=== PATIENT | male | born 1990 | race Caucasian/White ===

== ENCOUNTER 2019-11-26 21:52 | Emergency (ER) | payer OTHER, SELFPAY ==
[2019-11-26 21:54] VITALS: BP 167/86; PULSE 111; RESP 16; TEMP 38.5; O2SAT 100
--- NOTE | 2019-11-26 23:29 | ED_ITS ---
I attest that this documentation has been prepared under the direction and in the presence of Curt Fournier MD. Shaina Mathews Scribe 11/26/19;23:29 HPI - URI/Sore Throat General Chief Complaint: Upper Respiratory Infection Stated Complaint: flu symptoms Time Seen by Provider: 11/26/19 23:20 Source: patient and RN notes reviewed Mode of arrival: other Limitations: no limitations History of Present Illness HPI Narrative: Pt is a 29 y/o male who presents to the ED with c/o nasal congestion that began this morning. He states that he has been drinking water and Pedialyte. Pt also reports fever, chills, and a cough, but denies CP and SOB. MD elicited complaint: nasal congestion Onset (ago): hour(s) Consistency: constant Able to tolerate fluids by mouth: Yes Associated symptoms: fever, chills and cough Related Data Allergies Allergy/AdvReac Type Severity Reaction Status Date / Time amoxicillin Allergy Intermediate Other Verified 11/26/19 23:32 ibuprofen Allergy Intermediate TURNS FACE Verified 11/26/19 23:32 PURPLE Penicillins Allergy Unknown Swelling Verified 11/26/19 23:32 Review of Systems Constitutional: Constitutional: Reports chills and Reports fever(s) ENT: Reports nasal congestion Cardiovascular: Cardiovascular: Denies chest pain Respiratory: Respiratory: Reports cough and Denies dyspnea PMFSH Past Medical History Medical History (Updated 11/26/19 @ 23:34 by Shaina Mathews) Biliary colic RBBB (right bundle branch block with left anterior fascicular block) Surgical History Surgical History (Updated 11/26/19 @ 23:34 by Shaina Mathews) No history of previous surgery Social History Social History (Updated 11/26/19 @ 23:34 by Shaina Mathews) Smoking packs per day: 1 Smoking cigarettes per day: 20.0 Smoking status: Current every day smoker Tobacco type: cigarettes Alcohol intake: current Exam Narrative: Exam Narrative: GENERAL: Well-appearing, well-nourished, and in no acute distress. HEAD: Normocephalic, atraumatic. EYES: PERRLA and EOMI. ENT: Nares clear, . Mucous membranes moist. NECK: Supple. CHEST: Clear to auscultation. No respiratory distress. HEART: Regular rate and rhythm. No murmur heard. Normal peripheral pulses. ABDOMEN: Soft, non tender, non distended, normal active bowel sounds. EXTREMITIES: Normal range of motion. No edema. SKIN: Warm, dry, no rash. NEURO: No focal deficits. Alert and oriented x3. PSYCH: Normal mood and affect. Course Course Emergency Course: Inform patient about lab work. Advised him to drink plenty of fluids , take Tylenol or ibuprofen for fever or body aches. Rest and follow-up with the primary doctor if symptoms do not improve in 1 week. Vital Signs Vital signs: Vital Signs Temperature 38.5 C H 11/26/19 21:54 Pulse Rate 111 H 11/26/19 21:54 Respiratory Rate 16 11/26/19 21:54 Blood Pressure 167/86 H 11/26/19 21:54 Pulse Oximetry 100 11/26/19 21:54 Temperature 38.5 C H 11/26/19 21:54 Pulse Rate 111 H 11/26/19 21:54 Respiratory Rate 16 11/26/19 21:54 Blood Pressure 167/86 H 11/26/19 21:54 Pulse Oximetry 100 11/26/19 21:54 MDM - URI/Sore Throat Lab Data Labs:
[2019-11-26 23:40] VITALS: BP 171/80; PULSE 104; RESP 16; TEMP 38.3; O2SAT 100
== END 2019-11-27 | disposition home or self-care (01) ==
PROVIDERS: Emergency Provider Family Medicine
DX: B34.9 Viral infection, unspecified (principal); F17.210 Nicotine dependence, cigarettes, uncomplicated
CPT/HCPCS: 87804; 99283

== ENCOUNTER 2021-04-18 12:20 | Emergency (ER) | payer OTHER, SELFPAY ==
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
[2021-04-18 14:37] VITALS: BP 138/101; PULSE 92; RESP 18; TEMP 37.5; O2SAT 99
[2021-04-18 16:20] VITALS: BP 146/81; PULSE 90; RESP 18; O2SAT 99
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
== END 2021-04-18 17:47 | disposition home or self-care (01) ==
PROVIDERS: Emergency Provider Emergency Medicine
DX: S02.31XA Fracture of orbital floor, right side, initial encounter for closed fracture (principal); Y04.2XXA Assault by strike against or bumped into by another person, initial encounter
CPT/HCPCS: 70450; 70486; 72072; 99284

== ENCOUNTER 2024-05-08 13:31 | Emergency (ER) | payer OTHER, SELFPAY ==
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
[2024-05-08 13:36] VITALS: BP 159/101; PULSE 112; RESP 20; TEMP 36.2; O2SAT 100
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
== END 2024-05-08 15:24 | disposition home or self-care (01) ==
PROVIDERS: Emergency Provider Student in an Organized Health Care Education/Training Program
DX: S06.0X1A Concussion with loss of consciousness of 30 minutes or less, initial encounter (principal); S13.4XXA Sprain of ligaments of cervical spine, initial encounter; S39.012A Strain of muscle, fascia and tendon of lower back, initial encounter; F17.210 Nicotine dependence, cigarettes, uncomplicated; V43.52XA Car driver injured in collision with other type car in traffic accident, initial encounter
CPT/HCPCS: 70450; 72125; 73030; 73502; 73560; 99284